=== PATIENT | female | born 1945 | race Caucasian/White ===

== ENCOUNTER 2022-02-23 10:15 | Emergency (ER) | payer MEDICARE, BC ==
[2022-02-23] MEDS: Oxymetazoline 0.05% Nasal Spray 15 ML Bottle NAS ONE (10:28)
[2022-02-23 10:34] VITALS: BP 144/76; PULSE 76
== END 2022-02-23 11:15 | disposition home or self-care (01) ==
LOC: KA.ED 10:15
DX: R04.0 Epistaxis (principal); Z88.0 Allergy status to penicillin; Z88.1 Allergy status to other antibiotic agents; Z91.041 Radiographic dye allergy status; Z79.899 Other long term (current) drug therapy; Z79.01 Long term (current) use of anticoagulants
CPT/HCPCS: 99283; A9270-GY

== ENCOUNTER 2022-04-05 21:17 | Emergency (ER) | payer MEDICARE, BC ==
[2022-04-05 21:35] VITALS: PULSE 74
[2022-04-05 22:12] VITALS: BP 140/79
== END 2022-04-05 22:50 | disposition home or self-care (01) ==
LOC: KA.ED 21:17
DX: R04.0 Epistaxis (principal); Z88.1 Allergy status to other antibiotic agents; Z91.041 Radiographic dye allergy status; Z79.899 Other long term (current) drug therapy; Z79.01 Long term (current) use of anticoagulants
CPT/HCPCS: 30901; 36415; 85610; 99283; 99283-25